=== PATIENT | female | born 1965 | race Caucasian/White ===

== ENCOUNTER 2019-06-12 21:20 | Emergency (ER) | payer BC ==
[~2019-06-12] VITALS: Ht 170.2 cm; Wt 120.2 kg
[~2019-06-12 21:20] MED LIST: ADERALL; AMBIEN 5 MG TABL5 M1 PO; BENADRYL25 MG; DESYREL150 MG PO; NEXIUM40 MG PO; ZOLOFT50 MG PO
[2019-06-12] MEDS ORDERED: XANAX 0.5 MG0.5 MG PO (21:32)
[2019-06-12] MEDS ORDERED: PREDNISONE 20 M20 M1 PO (23:21)
[2019-06-12] MEDS ORDERED: PROAIR HFA8.5 GM INH (23:21)
[2019-06-12 23:30] VITALS: BP 159/90
== END 2019-06-12 23:31 | disposition home or self-care (01) ==
LOC: M.ERS 21:20
DX: J45.901 Unspecified asthma with (acute) exacerbation (principal); F32.9 Major depressive disorder, single episode, unspecified; F90.9 Attention-deficit hyperactivity disorder, unspecified type